=== PATIENT | female | born 1940 | race Caucasian/White ===

== ENCOUNTER 2017-11-18 11:46 | Inpatient (IN) ==
--- NOTE | 2017-11-18 11:18 | Anesthesia Evaluation PreOp ---
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 Any Significant HX Other Medical History: GERD (Hiatal hernia), Other (Colon mass) Alcohol Use: none Drug use: none Medications and Allergies Aspirin [Lo-Dose Aspirin EC] 81 mg PO DAILY 11/18/17 [History] Esomeprazole Magnesium [Nexium] 40 mg PO DAILY 11/18/17 [History] Ibuprofen [Advil] 200 mg PO TID PRN 11/18/17 [History] Tiotropium [Spiriva] 18 mcg IH DAILY 11/18/17 [History] Vit C/Vit E AC/Lut/Copper/Zinc [Preservision Lutein Softgel] 1 each PO DAILY [History] 3 Allergy/AdvReac Type Severity Reaction Status Date / Time No Known Allergies Allergy Verified 11/14/17 09:36 - Meds/Allergy Pre-op Review Medications Reviewed: Yes Allergies Reviewed: Yes Beta Blockers on Current Med List: No Anesthesia Results - Labs Laboratory Tests 09/11/17 11/14/17 11/14/17 09:58 09:47 09:47 Hgb 12.6 Hct 38.1 Plt Count 335 PT 11.5 INR 1.0 APTT 32.2 Sodium Potassium Chloride BUN Creatinine Est GFR (Non-Af Amer) Glucose 79 Albumin 4.0 Globulin 2.7 11/14/17 09:47 Hgb Hct Plt Count PT INR APTT Sodium 140 Potassium 4.2 Chloride 109 H BUN 22 Creatinine 0.77 Est GFR (Non-Af Amer) > 60 Glucose Albumin Globulin - Imaging Additional studies: Stress Test 06/2017: Pharmacologic stress ECG is negative for ischemia at level of heart rate achieved. Chest discomfort reported during stress, which is a nonspecific finding with Lexiscan. Gated EF > 70%. Small sized, mild intensity, primarily fixed apical perfusion defect. Wall motion appears normal. These findings suggest artifact. Perfusion imaging was negative for ischemia or infarct. PFT [id number]: Spirometry shows moderate airway restrictive disease. No response to inhaled bronchodilators is seen Lung Volumes TLC normal. Diffusion Capacity is severely reduced. Flow Volume Loop: Obstructive FVC 81% OF PREDICTED FEV1 78% MVV 83% DLCO 44% Anesthesia Exam O2 Sat Height 1.57 m Weight 55.338 kg Vital Signs Temp Pulse Resp BP Pulse Ox 97.9 F 86 18 122/75 94 11/18/17 12:19 11/18/17 12:19 11/18/17 12:19 11/18/17 12:19 11/18/17 12:19 NPO (# of Hours): 8 - HEENT Pupil (Motor): Pupils equal Mallampati: II Teeth: Edentulous Denture Type: Upper: Complete - GIFT SHOP CLERK LOC: Oriented - Cardiac Rhythm: Regular - Pulmonary Breath Sounds: bilateral Clear Anesthesia Assess/Plan ASA Score: 3 Modified [place] Scale for Level of Consciousness: Cooperative, oriented, and tranquil Anesthetic Plan: General Monitoring Plan: Standard Monitors Recovery Plan: PACU
[2017-11-18] MEDS ORDERED: cefOXitin 2,000 MG in Water for inj. (sterile) 20 ML 20 ML IVP ONE (12:15)
[2017-11-18] MEDS ORDERED: Ringers Solution, Lactated 1,000 ML IVC SCH (12:15)
[2017-11-18] MEDS ORDERED: Albuterol 2.5 MG/3 ML NEBULIZER IH ONE (12:15)
--- NOTE | 2017-11-18 12:41 | History & Physical Report ---
Date of Encounter: 11/18/17 Time of Encounter: 12:41 24 Hour HP Update - Instructions Instructions: If the History and Physical is less than 30 days old and was completed prior to A.M. admission and or procedure and has NOT been updated on calendar day of procedure please complete this update prior to performing procedure. - Update Patient reports changes in Medical Condition: No Changes in examination, assessment, or condition: No Changes in Medication: No Preop tests/diagnostics Reviewed: Yes Surgery Remains Indicated: Yes Consent for Planned Operative Procedure(s) Verified: Yes
[2017-11-18] MEDS ORDERED: *HR* FentaNYL (PF) 100 MCG/2 ML VIAL ONE ×4 (12:52→14:36)
[2017-11-18] MEDS ORDERED: *HR* Propofol 200 MG/20 ML VIAL IVP ONE (12:52)
[2017-11-18] MEDS ORDERED: Ondansetron 4 MG/2 ML VIAL ONE (12:52)
[2017-11-18] MEDS ORDERED: Dexamethasone 4 MG/ML VIAL ONE (12:52)
[2017-11-18] MEDS ORDERED: *HR* Succinylcholine 200 MG/10 ML VIAL IVP ONE (12:52)
[2017-11-18] MEDS ORDERED: *HR* Rocuronium Bromide 50 MG/5 ML VIAL ONE (12:52)
[2017-11-18] MEDS ORDERED: Lidocaine -MPF 2% 2 ML VIAL ONE (12:52)
[2017-11-18] MEDS ORDERED: Neostigmine Methylsulfate 3 MG/3 ML SYRINGE ONE (12:53)
[2017-11-18] MEDS ORDERED: Water for inj. (sterile) 10 ML IV ONE (12:57)
[2017-11-18] MEDS ORDERED: Acetaminophen IV 1,000 MG/100 ML INFUS..BTL ONE (13:30)
[2017-11-18] MEDS ORDERED: Dexamethasone 4 MG/ML VIAL IVP ONE (14:09)
[2017-11-18] MEDS ORDERED: Ondansetron 4 MG/2 ML VIAL IVP ONE (14:09)
[2017-11-18] MEDS ORDERED: *HR* Labetalol 20 MG/4 ML SYRINGE IVP PRN (14:09)
--- NOTE | 2017-11-18 14:43 | Operative Note ---
Date of procedure: 11/18/17 Pre-op diagnosis: Right colon cancer Post-op diagnosis: same Procedure: Exporter laparotomy with right colectomy Anesthesia: RUFUS Surgeon: Timmy Oshea Was there an undertaker assistant present: No Estimated blood loss (cc): 50 Specimen: Right colon Condition: stable Disposition: floor Procedure in Detail: After informed consent, the patient was taken the operating room placed in supine position. After adequate sedation and anesthesia the abdomen was prepped and draped. A 12 mm cannulas inserted into the abdomen. Upon entering the abdomen identified that the ascending colon was attached to the abdominal wall. There appeared to be a tumor reaction and adhesion to the peritoneum and abdominal wall at that point I elected to perform exporter laparotomy do an en bloc resection with resection of partial dominant wall. Once the abdominal wall was opened and retractors were placed. I was able to identify the cecum. It was dissected free off the abdominal wall with electrocautery. This area was clipped as to identify the abdominal wall later for radiation if needed. The white line of Toldt was freed up to the level of the hepatic flexure. The duodenum was swept out of the way. Terminal ileum was divided as was the transverse colon with the LOUIS 75 mm stapler. The vascular pedicles were taken with Roberta clamps and secured with 0 silk suture. Once completed the terminal ileum and transverse colon were anastomosed with a [id number] functional end- to-end anastomosis utilizing a LOUIS 75 mm stapler and a TA 60 stapler. Once complete staple line was oversewn with 3-0 silk suture. The liver was palpated no significant lesions were identified in the liver. Seprafilm was placed within the abdomen for as an adhesion barrier and then the abdominal wall was closed with loop PDS suture 1. Skin was closed with skin august. There were 30 mL of half percent Marcaine injected in the abdominal wall for pain control.
[2017-11-18] MEDS: *HR* HYDROmorphone (PF) 1 MG/ML SYRINGE IVP PRN ×2 (14:55→15:05)
--- NOTE | 2017-11-18 15:19 | Anesthesia Evaluation Post Op ---
Date of Encounter: 11/18/17 Time of Encounter: 15:20 - Vital Signs Vital Signs: Vital Signs/O2 Sat/Glucose, Most Current Temp Pulse Resp BP Pulse Ox 11/18/17 15:09 74 16 147/79 96 11/18/17 14:59 81 16 163/89 97 11/18/17 14:49 98.4 F 109 16 188/100 94 11/18/17 13:05 97.9 F 86 18 122/75 94 11/18/17 12:19 97.9 F 86 18 122/75 94 - Lungs Lungs: Clear Ascult./Percussion - Airway Airway: Non-obstructed - Cardiovascular Regular Rate - Mental Status Mental Status: Alert & Oriented, Answers Appropriately - Pain Pain Scale: 1 - Nausea Vomiting Nausea Vomiting: Not Present - Hydration Hydration: Ice chips - Discharge PostOp Status: Transfer Patient to floor
[2017-11-18] MEDS ORDERED: Ondansetron 4 MG/2 ML VIAL IVP PRN (15:54)
[2017-11-18] MEDS ORDERED: Naloxone 0.4 MG/ML INJ IVP PRN (15:54)
[2017-11-18] MEDS: OXYCODONE Oral CONC 10 MG/0.5 ML ORAL.SYG SL PRN (16:22)
[2017-11-18] MEDS: 0.9 % Sodium Chloride 1,000 ML IVC SCH (16:24)
[2017-11-18] MEDS: Ketorolac 15 MG/ML VIAL IVP SCH ×2 (17:36→23:52)
[2017-11-18] MEDS: *HR* Heparin 5,000 UNIT/ML VIAL SQ SCH (17:37)
[2017-11-19] MEDS: Ketorolac 15 MG/ML VIAL IVP SCH ×4 (05:16→23:52)
[2017-11-19] MEDS: *HR* Heparin 5,000 UNIT/ML VIAL SQ SCH ×2 (05:17→17:55)
[2017-11-19 06:28] LABS: Basophils % 0.1 %; Hematocrit 28.1 % (35.3-44.9); Hemoglobin 9.3 g/dL (11.5-15.4); Immature Granulocytes % 0.3 % (0-4); Lymphocytes # 0.9 K/mcL (0.6-4.6); Lymphocytes % 8.5 %; Mean Corpuscular HGB Conc 33.1 g/dL (31.6-35.5); Mean Corpuscular Hemoglobin 29.9 pg (28.0-33.3); Mean Corpuscular Volume 90.4 fL (83.0-100.0); Mean Platelet Volume 9.3 fL (9.4-12.4); Monocytes # 1.2 K/mcL (0.0-1.3); Monocytes % 11.7 %; Platelet Count 290 K/mcL (140-400); Red Blood Count 3.11 M/mcL (3.82-4.97); Red Cell Distribution Width 13.6 % (11.5-14.5); Segmented Neutrophils % 79.4 %
[2017-11-19 06:42] LABS: BUN/Creatinine Ratio 33 (6-26); Blood Urea Nitrogen 30 mg/dL (8-23); Calcium 8.1 mg/dL (8.6-10.3); Carbon Dioxide 23 mEq/L (23-29); Chloride 108 mEq/L (98-107); Glucose 182 mg/dL (70-105); Osmolality,Calculated 299 (280-300); Potassium 4.3 mEq/L (3.5-5.1); Sodium 139 mEq/L (136-145); eGFR For Non-African Americans > 60 (> 60)
[2017-11-19] MEDS: 0.9 % Sodium Chloride 1,000 ML IVC SCH ×2 (07:40→23:51)
--- NOTE | 2017-11-19 10:44 | General Surgery Progress Note ---
Date of Encounter: 11/19/17 Time of Encounter: 10:30 - Assessment and Plan (1) Cancer of right colon Current Visit: Yes Status: Acute POD #1 Robotic assisted right colectomy with Dr. Oshea Pathology pending Clear liquid diet Await flatus and then advance as tolerated Supportive care and pain control IS every 1 hour while awake PPI therapy daily Ambulate hallways TID with assistance Place joel catheter for urinary retention am labs- CBC, BMP (2) Urinary retention Current Visit: Yes Status: Acute Place joel catheter to SD Start flomax 0.4mg daily (3) DVT prophylaxis Current Visit: Yes Status: Acute Heparin 5000 units SQ twice daily for DVT prophylaxis Ambulate hallways TID with assistance EPCDs to bilateral lower extremities for DVT prophylaxis Subjective Patient reports: tolerating liquids well, no flatus, no bowel movement, afebrile , other (Patient states that she is unable to urinate- has only has a small amount since surgery) Objective Vital Signs - Last 8 Hours Temp Pulse Resp BP Pulse Ox 11/19/17 07:38 97.8 F 93 18 130/70 93 11/19/17 03:00 98.0 F 92 15 135/72 92 Intake and Output 11/18/17 11/19/17 11/19/17 23:59 07:59 15:59 Intake Total 500 / 500 1000 / 1000 Output Total 50 / 50 Balance 500 / 500 950 / 950 Intake: IV Fluids 500 / 500 1000 / 1000 0.9 % Sodium Chloride 1,000 ML 1000 / 1000 @ 60 mls/hr IVC .[id number] DARRYL Rx #:[id number] Lactated Ringers 1,000 ML @ 25 500 / 500 mls/hr IVC .Q24H DARRYL Rx#: [id number] Oral 0 / 0 0 / 0 Output: Urine 50 / 50 Other: Weight 55.8 kg - General physical appearance well developed, well nourished, no distress - Eyes normal ocular movement - ENT normal mucosa, atraumatic, normocephalic - Neck Neck exam: trachea midline - Respiratory normal respiratory effort, clear to auscultation - Cardiovascular Cardiovascular exam: Present: RRR - Abdomen Abdomen: Present: bowel sounds present, soft, tender (expected post-operative tenderness) - Incision Incision: Present: clean and dry, intact - Integumentary no rash, no growths, no abnormal pigmentation - Neurologic CN 2-12 grossly intact - Musculoskeletal normal gait, normal posture - Psychiatric oriented to time, oriented to person, oriented to place, speech is normal, memory intact - Labs 11/19/17 06:00 11/19/17 06:00 Diabetes panel 11/19/17 Range/Units 06:00 Sodium 139 (136-145) mEq/L Potassium 4.3 (3.5-5.1) mEq/L Chloride 108 H (98-107) mEq/L Carbon Dioxide 23 (23-29) mEq/L BUN 30 H (8-23) mg/dL Creatinine 0.90 (0.60-1.20) mg/dL Glucose 182 H (70-105) mg/dL Calcium 8.1 L (8.6-10.3) mg/dL Calcium panel 11/19/17 Range/Units 06:00 Calcium 8.1 L (8.6-10.3) mg/dL Pituitary panel 11/19/17 Range/Units 06:00 Sodium 139 (136-145) mEq/L Potassium 4.3 (3.5-5.1) mEq/L Chloride 108 H (98-107) mEq/L Carbon Dioxide 23 (23-29) mEq/L BUN 30 H (8-23) mg/dL Creatinine 0.90 (0.60-1.20) mg/dL Glucose 182 H (70-105) mg/dL Calcium 8.1 L (8.6-10.3) mg/dL Adrenal panel 11/19/17 Range/Units 06:00 Sodium 139 (136-145) mEq/L Potassium 4.3 (3.5-5.1) mEq/L Chloride 108 H (98-107) mEq/L Carbon Dioxide 23 (23-29) mEq/L BUN 30 H (8-23) mg/dL Creatinine 0.90 (0.60-1.20) mg/dL Glucose 182 H (70-105) mg/dL Calcium 8.1 L (8.6-10.3) mg/dL - VTE Documentation of Mechanical Device: Intermittent pneumatic compression device Consult Discharge Plan - Plan Referrals: Timmy Oshea DO [Partnered Physician] - 12/02/17 8:40 am Brendan Conley DO [Primary Care Provider] - - Attending Attestation For this encounter, I have reviewed the CERTIFIED MEDICAL AIDE or PA documentation, treatment plan, and medical decision making; and I have had face to face time with this patient.
[2017-11-19] MEDS: OXYCODONE Oral CONC 10 MG/0.5 ML ORAL.SYG SL PRN (11:03)
[2017-11-20] MEDS: *HR* Heparin 5,000 UNIT/ML VIAL SQ SCH (06:37)
[2017-11-20] MEDS: Ketorolac 15 MG/ML VIAL IVP SCH (06:37)
[2017-11-20 06:42] LABS: Basophils % 0.1 %; Eosinophils % 0.1 %; Hematocrit 22.2 % (35.3-44.9); Immature Granulocytes % 0.2 % (0-4); Lymphocytes % 22.2 %; Mean Corpuscular HGB Conc 32.9 g/dL (31.6-35.5); Mean Corpuscular Hemoglobin 29.6 pg (28.0-33.3); Mean Corpuscular Volume 89.9 fL (83.0-100.0); Mean Platelet Volume 9.4 fL (9.4-12.4); Monocytes % 11.1 %; Neutrophils # 5.9 K/mcL (1.6-8.9); Platelet Count 234 K/mcL (140-400); Red Blood Count 2.47 M/mcL (3.82-4.97); Red Cell Distribution Width 13.6 % (11.5-14.5); Segmented Neutrophils % 66.3 %
[2017-11-20 06:46] LABS: Hemoglobin 7.3 g/dL (11.5-15.4)
[2017-11-20 06:54] LABS: BUN/Creatinine Ratio 26 (6-26); Blood Urea Nitrogen 18 mg/dL (8-23); Calcium 7.8 mg/dL (8.6-10.3); Carbon Dioxide 25 mEq/L (23-29); Chloride 111 mEq/L (98-107); Glucose 100 mg/dL (70-105); Osmolality,Calculated 292 (280-300); Potassium 3.8 mEq/L (3.5-5.1); Sodium 140 mEq/L (136-145); eGFR For Non-African Americans > 60 (> 60)
[2017-11-20 10:31] VITALS: BP 113/66
--- NOTE | 2017-11-20 12:01 | Discharge Summary ---
Orders not resulted at time of discharge: Pending orders 11/18/17 14:41 Surgical Pathology [PTH] Routine Date of Encounter: 11/20/17 Time of Encounter: 12:00 - Discharge Diagnosis (1) Cancer of right colon Priority: Primary Status: Acute (2) Urinary retention Priority: Secondary Status: Resolved General Surgery Exam Initial Vital Signs Temp Pulse Resp BP Pulse Ox 97.9 F 86 18 122/75 94 11/18/17 12:19 11/18/17 12:19 11/18/17 12:19 11/18/17 12:19 11/18/17 12:19 - General physical appearance well developed, well nourished, no distress - Eyes normal ocular movement - ENT normal mucosa, atraumatic, normocephalic - Neck trachea midline - Respiratory normal respiratory effort, clear to auscultation - Cardiovascular Cardiovascular exam: Present: RRR - Abdomen Abdomen general surgery: Present: bowel sounds present, soft, tender (Mild, postoperative tenderness) - Incision Incision: Present: clean and dry, intact - Integumentary Integumentary general surgery: Present: warm and dry - Neurologic Present: CN 2-12 grossly intact - Psychiatric Psychiatric general surgery: Present: appropriate, oriented to person, oriented to place, oriented to time, speech is normal, memory intact - Hospital Course Hospital course: Ms. Steve is a 76 year old female with a history of a right-sided colon cancer. She is postoperative day #2 from a robotic assisted right colon resection with Dr. Oshea. On postoperative day #2, she is tolerating her liquids without nausea or vomiting. She is having bowel function and has had a bowel movement. She denies any rectal bleeding. Her vital signs are stable and she is afebrile. She did have some urinary retention which has resolved with conservative measures. Her pain is well-controlled. She is ambulating without difficulty. We will begin discharge planning and plan for outpatient follow-up in the next 10-14 days. - Time Spent with Patient Total time spent providing and/or coordinating discharge services: Less than 30 minutes - Discharge Medications Prescriptions: OxyCODONE/APAP 5/325 [Percocet 5/325 MG] 1 each PO Q6HR PRN 4 Days #16 tablet PRN Reason: Pain Home Medications: Aspirin [Lo-Dose Aspirin EC] 81 mg PO DAILY 11/18/17 [History] Esomeprazole Magnesium [Nexium] 40 mg PO DAILY 11/18/17 [History] Ibuprofen [Advil] 200 mg PO TID PRN 11/18/17 [History] Tiotropium [Spiriva] 18 mcg IH DAILY 11/18/17 [History] Vit C/Vit E AC/Lut/Copper/Zinc [Preservision Lutein Softgel] 1 each PO DAILY [History] OxyCODONE/APAP 5/325 [Percocet 5/325 MG] 1 each PO Q6HR PRN 4 Days #16 tablet [Rx] Allergies/Adverse Reactions: 3 Allergy/AdvReac Type Severity Reaction Status Date / Time No Known Allergies Allergy Verified 11/14/17 09:36 Date of admission: 11/18/17 15:52 Primary care physician: Brendan Conley Consults: 11/19/17 11:49 Consult to Cloth Folder Machine [CONS] Routine Reason for SW Consult: discharge planning Discharging clinician: Timmy Kuo [facility]) Anticipated date of discharge: 11/20/17 Labs on day of discharge: Labs from last 24 hours 11/20/17 11/20/17 06:17 06:17 WBC 8.9 RBC 2.47 L Hgb 7.3 L D Hct 22.2 L MCV 89.9 MCH 29.6 MCHC 32.9 RDW 13.6 Plt Count 234 MPV 9.4 Immature Gran % 0.2 Seg Neutrophils % 66.3 Lymphocytes % 22.2 Monocytes % 11.1 Eosinophils % 0.1 Basophils % 0.1 Neutrophils # 5.9 Lymphocytes # 2.0 Monocytes # 1.0 Eosinophils # 0.0 Basophils # 0.0 Sodium 140 Potassium 3.8 Chloride 111 H Carbon Dioxide 25 BUN 18 Creatinine 0.69 Est GFR ( Amer) > 60 Est GFR (Non-Af Amer) > 60 BUN/Creatinine Ratio 26 Glucose 100 Calculated Osmolality 292 Calcium 7.8 L - Patient Status Disposition: Home, Self-Care Condition: Good Functional capacity at discharge: independent ambulation Overall status at discharge: patient is progressing back to baseline - Discharge Instructions Follow Up With: Timmy Oshea DO [Partnered Physician] - 12/02/17 8:40 am Brendan Conley DO [Primary Care Provider] - Additional Instructions: #1 may shower, no tub bath or swimming for 2 weeks #2 wash incisions with soap and water and pat dry daily #3 no lifting, pushing, pulling more than 15 pounds for the next 4 weeks #4 no driving until off narcotics for 24 hours and able to safely react in the car #5 may climb stairs - Diet and Activity Activity: other (See additional instructions above) Diet: advance to your usual diet - Attending Attestation For this encounter, I have reviewed the UTILITY TENDER CARDING or PA documentation, treatment plan, and medical decision making; and I have had face to face time with this patient.
== END 2017-11-20 13:11 | disposition home or self-care (01) | DRG 330 ==
LOC: SAMDAY 11:46 → 3ANU 15:52
PROVIDERS: ADMIT Surgery; ATTEND Surgery

== ENCOUNTER 2021-08-05 20:48 | Inpatient (IN) ==
[2021-08-05 21:38] LABS: Hematocrit 34.3 % (35.3-44.9); Hemoglobin 11.3 g/dL (11.5-15.4); Mean Corpuscular HGB Conc 32.9 g/dL (31.6-35.5); Mean Corpuscular Hemoglobin 29.7 pg (28.0-33.3); Mean Corpuscular Volume 90.3 fL (83.0-100.0); Mean Platelet Volume 9.6 fL (9.4-12.4); Platelet Count 318 K/mcL (140-400); Red Cell Distribution Width 14.5 % (11.5-14.5); White Blood Count 12.9 K/mcL (4.3-11.1)
[2021-08-05 21:51] LABS: INR 1.2; Prothrombin Time 13.9 Seconds (9.4-12.1)
[2021-08-05 22:15] LABS: Alanine Aminotransferase 11 Units/L (7-52); Albumin 3.8 g/dL (3.5-5.7); Albumin/Globulin Ratio 1.5 (1.1-2.2); Alkaline Phosphatase 83 Units/L (34-104); Aspartate Amino Transferase 16 Units/L (13-39); BUN/Creatinine Ratio 37 (6-26); Bilirubin,Indirect 0.3 mg/dL (0.0-1.0); Bilirubin,Total 0.3 mg/dL (0.3-1.0); Blood Urea Nitrogen 28 mg/dL (8-23); Calcium 8.4 mg/dL (8.6-10.3); Carbon Dioxide 25 mEq/L (23-29); Chloride 104 mEq/L (98-107); Globulin 2.6 g/dL (2.4-3.5); Glucose 142 mg/dL (70-105); Osmolality,Calculated 292 (280-300); Potassium 3.7 mEq/L (3.5-5.1); Sodium 137 mEq/L (136-145); Total Protein 6.4 g/dL (6.4-8.9); Troponin I 0.13 ng/mL (< 0.04); eGFR For African Americans > 60 (> 60); eGFR For Non-African Americans > 60 (> 60)
[2021-08-05] MEDS ORDERED: Isovue-370 500 ML BOTTLE IVP ONE (23:03)
[2021-08-05] MEDS ORDERED: Aspirin 81 MG TAB.CHEW PO STA (23:35)
[2021-08-06] MEDS ORDERED: Naloxone 0.4 MG/ML INJ IVP PRN (00:19)
[2021-08-06] MEDS ORDERED: *HR* Promethazine 25 MG/ML VIAL IM PRN (00:19)
[2021-08-06] MEDS ORDERED: Ondansetron 4 MG/2 ML VIAL IVP PRN (00:19)
[2021-08-06] MEDS ORDERED: Perflutren Lipid Microsphere 1.3 ML in 0.9 % Sodium Chloride 8.7 ML IVP PRN ×2 (00:43→13:47)
[2021-08-06 01:35] LABS: Influenza A PCR Negative (Negative); Influenza B PCR Negative (Negative); Resp. Syncytial Virus PCR Negative (Negative)
[2021-08-06 01:39] LABS: SARS-CoV-2 by PCR (In House) Negative (Negative)
[2021-08-06 03:34] LABS: Basophils % 0.3 %; Eosinophils # 0.2 K/mcL (0.0-0.6); Eosinophils % 1.1 %; Hemoglobin 10.4 g/dL (11.5-15.4); Immature Granulocytes % 0.4 % (0-4); Lymphocytes # 2.5 K/mcL (0.6-4.6); Lymphocytes % 18.2 %; Mean Corpuscular HGB Conc 33.5 g/dL (31.6-35.5); Mean Corpuscular Hemoglobin 30.1 pg (28.0-33.3); Mean Corpuscular Volume 89.9 fL (83.0-100.0); Mean Platelet Volume 9.6 fL (9.4-12.4); Monocytes # 1.1 K/mcL (0.0-1.3); Monocytes % 8.2 %; Neutrophils # 9.7 K/mcL (1.6-8.9); Platelet Count 276 K/mcL (140-400); Red Blood Count 3.45 M/mcL (3.82-4.97); Red Cell Distribution Width 14.5 % (11.5-14.5); Segmented Neutrophils % 71.8 %; White Blood Count 13.6 K/mcL (4.3-11.1)
[2021-08-06 03:39] LABS: INR 1.3; Prothrombin Time 14.9 Seconds (9.4-12.1)
[2021-08-06 03:51] LABS: Alanine Aminotransferase 11 Units/L (7-52); Albumin 3.2 g/dL (3.5-5.7); Albumin/Globulin Ratio 1.2 (1.1-2.2); Alkaline Phosphatase 74 Units/L (34-104); Aspartate Amino Transferase 14 Units/L (13-39); BUN/Creatinine Ratio 33 (6-26); Bilirubin,Total 0.4 mg/dL (0.3-1.0); Blood Urea Nitrogen 23 mg/dL (8-23); Calcium 8.2 mg/dL (8.6-10.3); Carbon Dioxide 26 mEq/L (23-29); Chloride 105 mEq/L (98-107); Globulin 2.7 g/dL (2.4-3.5); Glucose 91 mg/dL (70-105); Magnesium 2.2 mg/dL (1.6-2.6); Osmolality,Calculated 289 (280-300); Potassium 3.7 mEq/L (3.5-5.1); Sodium 138 mEq/L (136-145); Total Protein 5.9 g/dL (6.4-8.9); eGFR For African Americans > 60 (> 60); eGFR For Non-African Americans > 60 (> 60)
[2021-08-06 03:53] LABS: Chol/HDL Ratio 3.5 (0-4.9)
[2021-08-06 04:18] LABS: Estimated Average Glucose 123 mg/dl; Hemoglobin A1C 5.9 %
[2021-08-06] MEDS ORDERED: *HR* Enoxaparin 40 MG/0.4 ML SYRINGE SQ SCH (06:00)
[2021-08-06] MEDS: Aspirin Enteric Coated 81 MG Tablet PO SCH (07:59)
[2021-08-06] MEDS ORDERED: *HR* Labetalol 20 MG/4 ML SYRINGE IVP PRN (08:02)
[2021-08-06] MEDS: Melatonin 3 MG TABLET PO PRN (21:17)
[2021-08-07 01:55] LABS: BUN/Creatinine Ratio 32 (6-26); Blood Urea Nitrogen 29 mg/dL (8-23); Calcium 8.5 mg/dL (8.6-10.3); Carbon Dioxide 25 mEq/L (23-29); Chloride 106 mEq/L (98-107); Glucose 90 mg/dL (70-105); Osmolality,Calculated 293 (280-300); Potassium 4.3 mEq/L (3.5-5.1); Sodium 139 mEq/L (136-145); eGFR For African Americans > 60 (> 60); eGFR For Non-African Americans 59 (> 60)
[2021-08-07 02:15] LABS: Basophils # 0.1 K/mcL (0.0-0.2); Basophils % 0.4 %; Eosinophils # 0.4 K/mcL (0.0-0.6); Eosinophils % 3.2 %; Hemoglobin 10.8 g/dL (11.5-15.4); Immature Granulocytes % 0.6 % (0-4); Lymphocytes # 2.4 K/mcL (0.6-4.6); Mean Corpuscular HGB Conc 31.8 g/dL (31.6-35.5); Mean Corpuscular Hemoglobin 29.3 pg (28.0-33.3); Mean Corpuscular Volume 92.4 fL (83.0-100.0); Mean Platelet Volume 9.7 fL (9.4-12.4); Monocytes # 1.2 K/mcL (0.0-1.3); Monocytes % 10.9 %; Neutrophils # 7.2 K/mcL (1.6-8.9); Platelet Count 287 K/mcL (140-400); Red Blood Count 3.68 M/mcL (3.82-4.97); Red Cell Distribution Width 14.7 % (11.5-14.5); Segmented Neutrophils % 63.9 %; White Blood Count 11.2 K/mcL (4.3-11.1)
[2021-08-07] MEDS: Aspirin Enteric Coated 81 MG Tablet PO SCH (08:51)
[2021-08-07] MEDS: amLODIPine 5 MG TABLET PO SCH (08:51)
[2021-08-07] MEDS ORDERED: Sennosides/Docusate Sodium TABLET PO ONE (08:57)
[2021-08-08 04:43] LABS: Basophils # 0.1 K/mcL (0.0-0.2); Basophils % 0.4 %; Eosinophils # 0.3 K/mcL (0.0-0.6); Hematocrit 38.3 % (35.3-44.9); Hemoglobin 12.2 g/dL (11.5-15.4); Immature Granulocytes % 0.6 % (0-4); Lymphocytes # 1.8 K/mcL (0.6-4.6); Lymphocytes % 12.9 %; Mean Corpuscular HGB Conc 31.9 g/dL (31.6-35.5); Mean Corpuscular Hemoglobin 29.2 pg (28.0-33.3); Mean Corpuscular Volume 91.6 fL (83.0-100.0); Mean Platelet Volume 9.6 fL (9.4-12.4); Monocytes # 1.2 K/mcL (0.0-1.3); Monocytes % 9.1 %; Neutrophils # 10.3 K/mcL (1.6-8.9); Platelet Count 303 K/mcL (140-400); Red Blood Count 4.18 M/mcL (3.82-4.97); Red Cell Distribution Width 14.8 % (11.5-14.5); White Blood Count 13.7 K/mcL (4.3-11.1)
[2021-08-08 05:03] LABS: BUN/Creatinine Ratio 27 (6-26); Blood Urea Nitrogen 21 mg/dL (8-23); Calcium 8.7 mg/dL (8.6-10.3); Carbon Dioxide 23 mEq/L (23-29); Chloride 105 mEq/L (98-107); Glucose 101 mg/dL (70-105); Osmolality,Calculated 285 (280-300); Potassium 4.2 mEq/L (3.5-5.1); Sodium 136 mEq/L (136-145); eGFR For African Americans > 60 (> 60); eGFR For Non-African Americans > 60 (> 60)
[2021-08-08] MEDS: Aspirin Enteric Coated 81 MG Tablet PO SCH ×2 (08:14→08:46)
[2021-08-08] MEDS: amLODIPine 5 MG TABLET PO SCH (08:46)
[2021-08-08] MEDS ORDERED: Lidocaine Viscous Oral Soln 15 ML SOLUTION MM PRN (14:23)
[2021-08-08] MEDS ORDERED: 0.9 % Sodium Chloride 500 ML IVC ONE (14:23)
[2021-08-08] MEDS: *HR* FentaNYL (PF) 100 MCG/2 ML VIAL IVP PRN ×3 (14:55→15:00)
[2021-08-08] MEDS: *HR* Midazolam HCl 5 MG/5 ML VIAL IVP PRN ×4 (14:55→15:05)
[2021-08-08] MEDS: Melatonin 3 MG TABLET PO PRN (21:20)
[2021-08-09 06:10] LABS: Basophils % 0.2 %; Eosinophils # 0.3 K/mcL (0.0-0.6); Eosinophils % 1.4 %; Hematocrit 36.4 % (35.3-44.9); Hemoglobin 12.1 g/dL (11.5-15.4); Immature Granulocytes % 0.5 % (0-4); Lymphocytes # 1.6 K/mcL (0.6-4.6); Lymphocytes % 9.2 %; Mean Corpuscular HGB Conc 33.2 g/dL (31.6-35.5); Mean Corpuscular Volume 90.1 fL (83.0-100.0); Mean Platelet Volume 9.7 fL (9.4-12.4); Monocytes # 1.5 K/mcL (0.0-1.3); Monocytes % 8.6 %; Neutrophils # 13.9 K/mcL (1.6-8.9); Platelet Count 284 K/mcL (140-400); Red Blood Count 4.04 M/mcL (3.82-4.97); Red Cell Distribution Width 14.6 % (11.5-14.5); Segmented Neutrophils % 80.1 %; White Blood Count 17.4 K/mcL (4.3-11.1)
[2021-08-09 06:28] LABS: BUN/Creatinine Ratio 41 (6-26); Blood Urea Nitrogen 32 mg/dL (8-23); Calcium 8.5 mg/dL (8.6-10.3); Carbon Dioxide 20 mEq/L (23-29); Chloride 105 mEq/L (98-107); Glucose 116 mg/dL (70-105); Osmolality,Calculated 290 (280-300); Sodium 136 mEq/L (136-145); eGFR For African Americans > 60 (> 60); eGFR For Non-African Americans > 60 (> 60)
[2021-08-09] MEDS: amLODIPine 5 MG TABLET PO SCH (08:30)
[2021-08-09] MEDS: Aspirin Enteric Coated 81 MG Tablet PO SCH (08:30)
[2021-08-09 10:29] VITALS: BP 129/70; PULSE 85; TEMP 98.3; O2SAT 94
[2021-08-09] MEDS ORDERED: Ibuprofen 600 MG TABLET PO PRN (10:48)
== END 2021-08-09 16:04 | disposition home or self-care (01) | DRG 64 ==
LOC: 3BNU 20:48 → EMEROOARM 20:48 → SUATTDRO 08-06 00:52 → 3BNU 08-06 01:52
PROVIDERS: ADMIT Internal Medicine; ATTEND Internal Medicine

== ENCOUNTER 2021-08-14 08:54 | Observation (INO) ==
[2021-08-14] MEDS ORDERED: Isovue-370 500 ML BOTTLE IVP ONE (09:18)
[2021-08-14 09:49] LABS: Basophils % 0.1 %; Eosinophils # 0.1 K/mcL (0.0-0.6); Eosinophils % 0.5 %; Hematocrit 28.7 % (35.3-44.9); Immature Granulocytes % 0.6 % (0-4); Lymphocytes # 1.8 K/mcL (0.6-4.6); Lymphocytes % 11.2 %; Mean Corpuscular HGB Conc 32.8 g/dL (31.6-35.5); Mean Corpuscular Hemoglobin 29.7 pg (28.0-33.3); Mean Corpuscular Volume 90.5 fL (83.0-100.0); Mean Platelet Volume 9.2 fL (9.4-12.4); Monocytes # 1.3 K/mcL (0.0-1.3); Monocytes % 8.3 %; Neutrophils # 12.7 K/mcL (1.6-8.9); Platelet Count 254 K/mcL (140-400); Red Blood Count 3.17 M/mcL (3.82-4.97); Red Cell Distribution Width 14.4 % (11.5-14.5); Segmented Neutrophils % 79.3 %
[2021-08-14 09:50] LABS: Hemoglobin 9.4 g/dL (11.5-15.4)
[2021-08-14 09:56] LABS: INR 1.8; Prothrombin Time 20.5 Seconds (9.4-12.1)
[2021-08-14 09:59] LABS: Activated Partial Thrombo Time 25.4 Seconds (26.0-36.0)
[2021-08-14 10:33] LABS: Alanine Aminotransferase 29 Units/L (7-52); Albumin/Globulin Ratio 1.3 (1.1-2.2); Alkaline Phosphatase 63 Units/L (34-104); Aspartate Amino Transferase 20 Units/L (13-39); BUN/Creatinine Ratio 38 (6-26); Bilirubin,Direct 0.1 mg/dL (0.0-0.2); Bilirubin,Indirect 0.3 mg/dL (0.0-1.0); Bilirubin,Total 0.4 mg/dL (0.3-1.0); Blood Urea Nitrogen 33 mg/dL (8-23); Calcium 7.8 mg/dL (8.6-10.3); Carbon Dioxide 25 mEq/L (23-29); Chloride 104 mEq/L (98-107); Ethanol < 10 mg/dL (Less than 10); Globulin 2.4 g/dL (2.4-3.5); Glucose 91 mg/dL (70-105); Osmolality,Calculated 289 (280-300); Potassium 3.7 mEq/L (3.5-5.1); Sodium 136 mEq/L (136-145); Thyroid Stimulating Hormone 3.104 mcIU/mL (0.340-5.600); Total Protein 5.4 g/dL (6.4-8.9); Troponin I 0.71 ng/mL (< 0.04); eGFR For African Americans > 60 (> 60); eGFR For Non-African Americans > 60 (> 60)
[2021-08-14 10:38] LABS: Bilirubin,Urine Negative (Negative); Blood,Urine Large (Negative); Clarity,Urine Clear (Clear); Color,Urine Light-Yellow (Yellow); Glucose,Urine (UA) Normal (Normal); Hyaline Casts,Urine Few per lpf (None Seen); Ketones,Urine Negative (Negative); Leukocyte Esterase,Urine Negative (Negative); Mucus,Urine Few per lpf (None-Few); Nitrite,Urine Negative (Negative); PH,Urine 6.5 pH Units (5.0-8.0); Protein,Urine 30 mg/dL (Neg-Trace); RBC,Urine TNTC per hpf (0-3); Specific Gravity,Urine > 1.030 (1.010-1.025); Squamous Epithelial Cell,Urine Few per hpf (None-Few); Urobilinogen,Urine Normal (Normal); WBC,Urine 0-3 per hpf (0-3)
[2021-08-14 10:51] LABS: Amphetamine Screen,Urine Negative ng/mL (Cutoff=1000); Barbiturate Screen,Urine Negative ng/mL (Cutoff=200); Benzodiazepines Screen,Urine Negative ng/mL (Cutoff=200); Cannabinoid Screen,Urine Negative ng/mL (Cutoff = 50); Cocaine Screen,Urine Negative ng/mL (Cutoff= 300); Opiate Screen,Urine Negative ng/mL (Cutoff=300); Phencyclidine Screen,Urine Negative ng/mL (Cutoff=25)
[2021-08-14] MEDS ORDERED: Aspirin 325 MG TABLET PO ONE (11:17)
[2021-08-14] MEDS ORDERED: Naloxone 0.4 MG/ML INJ IVP PRN (13:14)
[2021-08-14] MEDS ORDERED: 0.9 % Sodium Chloride 1,000 ML IVC SCH (13:15)
[2021-08-14] MEDS ORDERED: Ondansetron ODT 4 MG TAB.RAPDIS SL PRN (13:34)
[2021-08-14] MEDS: Apixaban 5 MG TABLET PO SCH (22:20)
[2021-08-14] MEDS: dexAMETHasone 4 MG TABLET PO SCH (22:20)
[2021-08-15 06:17] LABS: Basophils % 0.1 %; Hematocrit 32.6 % (35.3-44.9); Hemoglobin 10.7 g/dL (11.5-15.4); Immature Granulocytes % 0.4 % (0-4); Lymphocytes # 0.6 K/mcL (0.6-4.6); Lymphocytes % 4.5 %; Mean Corpuscular HGB Conc 32.8 g/dL (31.6-35.5); Mean Corpuscular Hemoglobin 29.4 pg (28.0-33.3); Mean Corpuscular Volume 89.6 fL (83.0-100.0); Mean Platelet Volume 9.8 fL (9.4-12.4); Monocytes # 0.3 K/mcL (0.0-1.3); Monocytes % 2.1 %; Platelet Count 266 K/mcL (140-400); Red Blood Count 3.64 M/mcL (3.82-4.97); Red Cell Distribution Width 14.4 % (11.5-14.5); Segmented Neutrophils % 92.9 %
[2021-08-15 06:36] LABS: BUN/Creatinine Ratio 36 (6-26); Blood Urea Nitrogen 24 mg/dL (8-23); Calcium 8.4 mg/dL (8.6-10.3); Carbon Dioxide 22 mEq/L (23-29); Chloride 105 mEq/L (98-107); Glucose 112 mg/dL (70-105); Magnesium 2.1 mg/dL (1.6-2.6); Osmolality,Calculated 287 (280-300); Phosphorous 2.9 mg/dL (2.7-4.5); Potassium 4.1 mEq/L (3.5-5.1); Sodium 136 mEq/L (136-145); eGFR For African Americans > 60 (> 60); eGFR For Non-African Americans > 60 (> 60)
[2021-08-15 06:55] LABS: % Iron Saturation 9 % (15-50); Ferritin 240 ng/mL (10-120); Iron 26 mcg/dL (50-170); Transferrin 202 mg/dL (203-362)
[2021-08-15 06:57] VITALS: PULSE 71
[2021-08-15 07:01] LABS: Folate 10.4 ng/mL (3.0-16.0)
[2021-08-15 07:09] LABS: Vitamin B12 > 1500 pg/mL (250-1100)
[2021-08-15] MEDS ORDERED: Tiotropium 10 INH DOSE IH ONE (07:19)
[2021-08-15] MEDS: Apixaban 5 MG TABLET PO SCH (08:57)
[2021-08-15] MEDS: dexAMETHasone 4 MG TABLET PO SCH (08:58)
[2021-08-15] MEDS ORDERED: Aspirin 81 MG TAB.CHEW PO SCH (09:00)
[2021-08-15] MEDS ORDERED: Tiotropium 10 INH DOSE IH SCH (10:00)
[2021-08-15 10:26] VITALS: BP 147/72; TEMP 98.4; O2SAT 97
== END 2021-08-15 16:27 | disposition home or self-care (01) ==
LOC: EMEROOARM 08:54 → 3BNU 08:54 → SUATTDRO 11:27 → 3BNU 12:52
PROVIDERS: ADMIT Internal Medicine; ATTEND Internal Medicine

== ENCOUNTER 2021-08-21 09:59 | Inpatient (IN) ==
[2021-08-21] MEDS ORDERED: 0.9 % Sodium Chloride 1,000 ML IVC ONE (10:23)
[2021-08-21 11:07] LABS: Lymphocytes % 0.9 %; Red Blood Count 3.06 M/mcL (3.82-4.97)
[2021-08-21 11:09] LABS: Basophils # 0.1 K/mcL (0.0-0.2); Basophils % 0.2 %; Hematocrit 27.7 % (35.3-44.9); Hemoglobin 9.2 g/dL (11.5-15.4); Immature Granulocytes % 1.2 % (0-4); Lymphocytes # 0.4 K/mcL (0.6-4.6); Mean Corpuscular HGB Conc 33.2 g/dL (31.6-35.5); Mean Corpuscular Hemoglobin 30.1 pg (28.0-33.3); Mean Corpuscular Volume 90.5 fL (83.0-100.0); Monocytes # 1.5 K/mcL (0.0-1.3); Monocytes % 3.8 %; Platelet Count 212 K/mcL (140-400); Segmented Neutrophils % 93.9 %
[2021-08-21 11:12] LABS: White Blood Count 39.4 K/mcL (4.3-11.1)
[2021-08-21 11:19] LABS: Activated Partial Thrombo Time 25.5 Seconds (26.0-36.0)
[2021-08-21 11:24] LABS: INR 3.2; Prothrombin Time 35.7 Seconds (9.4-12.1)
[2021-08-21 11:31] LABS: Platelet Estimate Normal (Normal)
[2021-08-21 11:32] LABS: Alanine Aminotransferase 27 Units/L (7-52); Albumin 3.4 g/dL (3.5-5.7); Albumin/Globulin Ratio 1.2 (1.1-2.2); Alkaline Phosphatase 93 Units/L (34-104); Aspartate Amino Transferase 34 Units/L (13-39); BUN/Creatinine Ratio 54 (6-26); Bilirubin,Direct 0.1 mg/dL (0.0-0.2); Bilirubin,Indirect 0.4 mg/dL (0.0-1.0); Bilirubin,Total 0.5 mg/dL (0.3-1.0); Blood Urea Nitrogen 54 mg/dL (8-23); Calcium 8.9 mg/dL (8.6-10.3); Carbon Dioxide 26 mEq/L (23-29); Chloride 102 mEq/L (98-107); Globulin 2.9 g/dL (2.4-3.5); Glucose 150 mg/dL (70-105); Lipase 52 Units/L (11-82); Osmolality,Calculated 302 (280-300); Potassium 4.2 mEq/L (3.5-5.1); Sodium 137 mEq/L (136-145); Total Protein 6.3 g/dL (6.4-8.9); Troponin I 3.51 ng/mL (< 0.04); eGFR For African Americans > 60 (> 60); eGFR For Non-African Americans 54 (> 60)
[2021-08-21 12:11] LABS: Bilirubin,Urine Negative (Negative); Blood,Urine Large (Negative); Clarity,Urine Clear (Clear); Color,Urine Yellow (Yellow); Glucose,Urine (UA) 150 mg/dL (Normal); Ketones,Urine Negative (Negative); Leukocyte Esterase,Urine Negative (Negative); Mucus,Urine Few per lpf (None-Few); Nitrite,Urine Negative (Negative); Protein,Urine 70 mg/dL (Neg-Trace); RBC,Urine TNTC per hpf (0-3); Specific Gravity,Urine 1.024 (1.010-1.025); Squamous Epithelial Cell,Urine Few per hpf (None-Few); Urobilinogen,Urine Normal (Normal)
[2021-08-21] MEDS ORDERED: cefTRIAXone 1,000 MG in 0.9 % Sodium Chloride Mini Bag 100 ML IVPB ONE (16:00)
[2021-08-21] MEDS ORDERED: Perflutren Lipid Microsphere 1.3 ML in 0.9 % Sodium Chloride 8.7 ML IVP PRN (17:02)
[2021-08-21] MEDS ORDERED: Naloxone 0.4 MG/ML INJ IVP PRN (17:03)
[2021-08-21] MEDS: Ringers Solution, Lactated 1,000 ML IVC SCH (18:10)
[2021-08-21] MEDS ORDERED: *HR* Labetalol 20 MG/4 ML SYRINGE IVP PRN (18:39)
[2021-08-21] MEDS: Bisacodyl 10 MG RECTAL SUPPOSITORY RC SCH (20:19)
[2021-08-22 01:57] LABS: VBG HCO3 21 mEq/L (21-27); VBG PCO2 26 mmHg (41-51); VBG PH 7.52 pH Units (7.32-7.42); VBG PO2 119 mmHg (25-50)
[2021-08-22 02:02] LABS: Basophils % 0.2 %
[2021-08-22 02:04] LABS: Basophils # 0.1 K/mcL (0.0-0.2); Hematocrit 24.1 % (35.3-44.9); Hemoglobin 7.9 g/dL (11.5-15.4); Immature Granulocytes % 1.9 % (0-4); Lymphocytes % 1.7 %; Mean Corpuscular HGB Conc 32.8 g/dL (31.6-35.5); Mean Corpuscular Hemoglobin 29.8 pg (28.0-33.3); Mean Corpuscular Volume 90.9 fL (83.0-100.0); Mean Platelet Volume 9.9 fL (9.4-12.4); Monocytes # 2.4 K/mcL (0.0-1.3); Monocytes % 6.4 %; Platelet Count 180 K/mcL (140-400); Red Blood Count 2.65 M/mcL (3.82-4.97); Red Cell Distribution Width 15.1 % (11.5-14.5); Segmented Neutrophils % 89.8 %
[2021-08-22 02:10] LABS: Lymphocytes # 0.7 K/mcL (0.6-4.6); Neutrophils # 34.1 K/mcL (1.6-8.9)
[2021-08-22 02:16] LABS: BUN/Creatinine Ratio 68 (6-26); Blood Urea Nitrogen 57 mg/dL (8-23); Calcium 8.3 mg/dL (8.6-10.3); Carbon Dioxide 24 mEq/L (23-29); Chloride 109 mEq/L (98-107); Chol/HDL Ratio 2.3 (0-4.9); Cholesterol 79 mg/dL (< 200); Glucose 122 mg/dL (70-105); HDL Cholesterol 34 mg/dL (40-59); LDL Cholesterol,Calculated 31 mg/dL (< 100); Magnesium 2.6 mg/dL (1.6-2.6); Osmolality,Calculated 309 (280-300); Phosphorous 3.5 mg/dL (2.7-4.5); Potassium 3.9 mEq/L (3.5-5.1); Sodium 141 mEq/L (136-145); Triglycerides 72 mg/dL (< 150); Troponin I 2.58 ng/mL (< 0.04); eGFR For African Americans > 60 (> 60); eGFR For Non-African Americans > 60 (> 60)
[2021-08-22 02:28] LABS: INR 2.7; Prothrombin Time 29.7 Seconds (9.4-12.1)
[2021-08-22 02:29] LABS: Thyroid Stimulating Hormone 0.652 mcIU/mL (0.340-5.600)
[2021-08-22 02:46] LABS: Platelet Estimate Normal (Normal)
[2021-08-22 04:47] LABS: Estimated Average Glucose 126 mg/dl
[2021-08-22] MEDS ORDERED: Dextrose 4 GM Chewable Tablets PO PRN ×2 (05:16)
[2021-08-22] MEDS ORDERED: *HR* Dextrose 50 % in Water (Syg) 50 ML SYRINGE IVP PRN (05:16)
[2021-08-22] MEDS ORDERED: D5% in Water 1,000 ML IVC PRN (05:16)
[2021-08-22] MEDS: Bisacodyl 10 MG RECTAL SUPPOSITORY RC SCH (08:23)
[2021-08-22] MEDS: Pantoprazole 40 MG VIAL IVP SCH (08:25)
[2021-08-22 10:13] LABS: Hematocrit 23.3 % (35.3-44.9); Hemoglobin 7.7 g/dL (11.5-15.4)
[2021-08-22] MEDS: Ringers Solution, Lactated 1,000 ML IVC SCH (14:04)
[2021-08-22] MEDS ORDERED: cefTRIAXone 1,000 MG in 0.9 % Sodium Chloride Mini Bag 100 ML IVPB SCH (15:00)
[2021-08-22 17:07] LABS: Hematocrit 21.8 % (35.3-44.9); Hemoglobin 7.1 g/dL (11.5-15.4)
[2021-08-22] MEDS ORDERED: 0.9 % Sodium Chloride 250 ML IVC SCH (17:45)
[2021-08-22] MEDS ORDERED: Piperacillin/Tazobactam 3.375 GM in 0.9 % Sodium Chloride Mini Bag 100 ML IVPB SCH (20:00)
[2021-08-23] MEDS: Piperacillin/Tazobactam 3.375 GM in 0.9 % Sodium Chloride Mini Bag 100 ML IVPB SCH ×3 (01:18→16:54)
[2021-08-23 04:55] LABS: Basophils % 0.1 %; Lymphocytes % 2.7 %
[2021-08-23 04:56] LABS: Hematocrit 28.7 % (35.3-44.9); Hemoglobin 9.5 g/dL (11.5-15.4); Immature Granulocytes % 1.2 % (0-4); Lymphocytes # 0.7 K/mcL (0.6-4.6); Mean Corpuscular HGB Conc 33.1 g/dL (31.6-35.5); Mean Corpuscular Hemoglobin 30.2 pg (28.0-33.3); Mean Corpuscular Volume 91.1 fL (83.0-100.0); Mean Platelet Volume 10.2 fL (9.4-12.4); Monocytes # 1.8 K/mcL (0.0-1.3); Monocytes % 6.7 %; Neutrophils # 23.7 K/mcL (1.6-8.9); Platelet Count 133 K/mcL (140-400); Red Blood Count 3.15 M/mcL (3.82-4.97); Red Cell Distribution Width 15.4 % (11.5-14.5); Segmented Neutrophils % 89.3 %; White Blood Count 26.5 K/mcL (4.3-11.1)
[2021-08-23 05:03] LABS: Prothrombin Time 22.5 Seconds (9.4-12.1)
[2021-08-23 05:26] LABS: BUN/Creatinine Ratio 68 (6-26); Blood Urea Nitrogen 49 mg/dL (8-23); Calcium 8.1 mg/dL (8.6-10.3); Carbon Dioxide 22 mEq/L (23-29); Chloride 115 mEq/L (98-107); Glucose 94 mg/dL (70-105); Magnesium 2.7 mg/dL (1.6-2.6); Osmolality,Calculated 315 (280-300); Phosphorous 3.2 mg/dL (2.7-4.5); Potassium 3.5 mEq/L (3.5-5.1); Sodium 146 mEq/L (136-145); eGFR For African Americans > 60 (> 60); eGFR For Non-African Americans > 60 (> 60)
[2021-08-23 08:06] VITALS: PULSE 82; O2SAT 96
[2021-08-23] MEDS: Pantoprazole 40 MG VIAL IVP SCH (09:49)
[2021-08-23] MEDS: Ondansetron 4 MG/2 ML VIAL IVP PRN ×2 (10:51→19:16)
[2021-08-24 05:06] LABS: Prothrombin Time 22.3 Seconds (9.4-12.1)
[2021-08-24 08:07] VITALS: BP 150/37; TEMP 97.7
[2021-08-24] MEDS: Ondansetron 4 MG/2 ML VIAL IVP PRN (12:53)
[2021-08-24] MEDS: Pantoprazole 40 MG VIAL IVP SCH (14:27)
== END 2021-08-24 16:30 | disposition hospice, home (50) | DRG 871 ==
LOC: EMEROOARM 09:59 → 2NENU 09:59 → SUATTDRO 15:57 → 2NENU 16:37
PROVIDERS: ADMIT Family Medicine; ATTEND Pharmacist